=== PATIENT | male | born 1965 | race Caucasian/White ===

== ENCOUNTER 2021-12-15 18:08 | Emergency (ER) | payer OTHER ==
[~2021-12-15] VITALS: Ht 175.3 cm; Wt 83.9 kg
[2021-12-15 19:03] LABS: ABSOLUTE BASOPHILS 0.1 thou/uL (0.0-0.2); ABSOLUTE EOSINOPHILS 0.3 thou/uL (0.0-0.7); ABSOLUTE LYMPHOCYTES 2.8 thou/uL (0.8-5.3); ABSOLUTE MONOCYTES 0.6 thou/uL (0.0-1.2); ABSOLUTE NEUTROPHILS 5.5 thou/uL (1.6-8.1); BASOPHILS 0.9 %; EOSINOPHILS 2.9 %; HEMATOCRIT 46.4 % (42.0-52.0); HEMOGLOBIN 16.3 gm/dL (14.0-18.0); LYMPHOCYTES 30.6 %; MCH 32.7 pg (26.0-34.0); MCV 93.2 fL (80.0-100.0); MONOCYTES 6.3 %; MPV 7.9 fl. (7.2-11.1); NUCLEATED RBCS 0 /100WBC; PLATELET COUNT* 235 thou/uL (150-400); POLYS 59.3 %; RBC 4.98 mil/uL (4.50-6.00); RDW-CV 13.1 % (10.5-14.5); WBC 9.3 thou/uL (4.0-11.0)
[2021-12-15 19:05] LABS: CALCIUM 9.1 mg/dL (8.5-10.1); CREATININE 0.9 mg/dL (0.6-1.3); POTASSIUM 3.5 mmol/L (3.5-5.1)
[2021-12-15 19:15] LABS: ALBUMIN 4.3 g/dL (3.4-5.0); MAGNESIUM 2.2 mg/dL (1.8-2.4); TOTAL BILIRUBIN 0.6 mg/dL (<0.1-1.0)
[2021-12-15 19:27] VITALS: BP 137/85
--- NOTE | 2021-12-16 09:50 | EKG ---
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1965 Requested By: Stevan Duggan Order Number: [id number] MD: Lucas Dominguez Measurements Intervals [place] Rate: 92 P: NE: QRS: 60 QRSD: 96 T: 158 QT: 378 QTc: 468 Interpretive Statements sinus rhythm with pac artifact noted Probable septal infarct, old Abnormal T, consider ischemia, lateral leads No previous ECG available for comparison Electronically Signed On 12-16-2021 9:50:32 RECONCILIATION COORDINATOR by Lucas Dominguez [email or web address] <ELECTRONICALLY SIGNED> By: Lucas Dominguez MD, [facility] 12/16/21 0950 1825 1825 Lucas Dominguez MD, [facility] /EPI
--- NOTE | 2021-12-16 09:52 | EKG ---
[place] [address] ELECTROCARDIOGRAM REPORT Name: ARA RAMSAY Room: 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1965 Requested By: Stevan Duggan Order Number: [id number] MD: Lucas Dominguez Measurements Intervals [place] Rate: 96 P: 92 WV: 215 QRS: 60 QRSD: 118 T: 53 QT: 372 QTc: 471 Interpretive Statements Sinus rhythm artifact noted Prolonged [place] interval Probable left atrial enlargement Nonspecific intraventricular conduction delay septal infarct, old Abnormal T, consider ischemia, lateral leads Compared to ECG 12/15/2021 18:25:27 First degree AV block now present Intraventricular conduction delay now present Myocardial infarct finding still present T-wave abnormality still present Electronically Signed On 12-16-2021 9:51:41 LOSS PREVENTION SPECIALIST by Lucas Dominguez [email or web address] <ELECTRONICALLY SIGNED> By: Lucas Dominguez MD, [facility] 12/16/21 0951 36 36 Lucas Dominguez MD, [facility] /EPI
== END 2021-12-15 19:30 | disposition home or self-care (01) ==
LOC: M.ERS 18:08
PROVIDERS: Family Medicine
DX: R00.2 Palpitations (principal); F17.210 Nicotine dependence, cigarettes, uncomplicated; Z91.041 Radiographic dye allergy status